=== PATIENT | female | born 1935 ===

== ENCOUNTER 2020-02-22 08:00 | Outpatient (CLI) | payer MEDICAID ==
[2020-02-22 12:39] LABS: BILIRUBIN,URINE NEGATIVE (NEGATIVE); GLUCOSE, URINE (UA) NEGATIVE (NEGATIVE); KETONES,URINE (UA) NEGATIVE (NEGATIVE); LEUKOCYTE ESTERASE, URINE SMALL (NEGATIVE); NITRITE,URINE POSITIVE (NEGATIVE); OCCULT BLOOD,URINE NEGATIVE (NEGATIVE); PROTEIN,URINE NEGATIVE (NEGATIVE); UROBILINOGEN,URINE 0.2 (NORMAL) E.U./dL (NORMAL)
[2020-02-22 13:00] LABS: CLARITY,URINE CLEAR (CLEAR); RBC,URINE 0-5 /HPF (0-5)
[2020-02-22 13:01] LABS: BACTERIA,URINE Moderate /HPF (None Seen); SQUAMOUS EPITHELIAL CELL,UR RARE Squamous (<= Few)
== END 2020-02-22 23:59 | disposition home or self-care (01) ==
LOC: LAB.R 08:00
DX: R35.0 Frequency of micturition (principal)
CPT/HCPCS: 81001; 81003

== ENCOUNTER 2020-03-16 08:47 | Outpatient (CLI) | payer MEDICARE, MEDICAID | END 2020-03-16 08:48 | disposition E | LOC: EMS 08:47 | PROVIDERS: ATTEND Surgery ==